=== PATIENT | female | born 1970 | race Caucasian/White ===

== ENCOUNTER 2017-09-19 11:38 | Inpatient (IN) | payer BC, OTHER ==
[~2017-09-19] VITALS: Ht 170.2 cm; Wt 91.8 kg
[2017-09-19] VITALS (14 sets, daily range): BP systolic 95–122; BP diastolic 40–67
--- NOTE | ~2017-09-19 | EKG ---
[address] [address] ELECTROCARDIOGRAM REPORT Name: MIGUEL PALMER Room #: 246-P ADM IN M.R.#: [id number] Admission: 09/19/17 Attend Phys: Khalif Torres DO Discharge: Date of : 74 Report #: [id number] THIS REPORT FOR: //name// [facility] ED Test Date: 2017-09-19 Test Time: 12:50:49 Pat Name: MIGUEL PALMER Department: Room: 246 Gender: F Cardiac Cath Tech: MARCO ANTONIO : 1970 Requested By: Kade Zavaleta Order Number: [id number] MD: Chance Doan Measurements Intervals [place] Rate: 125 P: 75 MI: 149 QRS: 46 QRSD: 98 T: 40 QT: 316 QTc: 456 Interpretive Statements Sinus tachycardia No previous ECG available for comparison Electronically Signed On 09-21-2017 12:17:22 RESIDENTIAL MONITOR by Chance Doan [email or web address] <ELECTRONICALLY SIGNED> By: Chance Doan MD 09/21/17 1217 1250 1250 Chance Doan MD /NKECHI
[2017-09-19 12:03] LABS: HEMATOCRIT 48.7 % (37.0-47.0); HEMOGLOBIN 15.5 gm/dL (12.0-15.0); MCH 29.8 pg (26.0-34.0); MCHC 31.8 g/dL (28.0-37.0); MCV 93.7 fL (80.0-100.0); RBC 5.2 mil/uL (4.20-5.00); RDW 13.6 % (10.5-14.5)
[2017-09-19 12:14] LABS: CALCIUM 9.7 mg/dL (8.5-10.1); CREATININE 1.2 mg/dL (0.6-1.0); POTASSIUM 5.1 mmol/L (3.5-5.1)
[2017-09-19] MEDS ORDERED: LEXAPRO 10 MG T10 M2 PO (12:16)
[2017-09-19] MEDS ORDERED: LEXAPRO20 MG PO (12:16)
[2017-09-19] MEDS ORDERED: HUMALOG100 UNIT/1 SUBQ (12:17)
[2017-09-19] MEDS ORDERED: ADDERALL 5 MG TA5 M1 PO (12:17)
[2017-09-19] MEDS ORDERED: MAXZIDE-25 MG1 EACH PO (12:17)
[2017-09-19 12:41] LABS: URINE BILIRUBIN NEGATIVE (Negative); URINE BLOOD TRACE (Negative); URINE COLOR YELLOW; URINE GLUCOSE-RANDOM* 2+ (Negative); URINE KETONES 3+ (Negative); URINE LEUKOCYTES-REFLEX NEGATIVE (Negative); URINE PROTEIN (DIPSTICK) TRACE (Negative); URINE SPECIFIC GRAVITY 1.025 (1.003-1.035); URINE UROBILINOGEN 0.2 E.U./dl (0.2-1.0)
[2017-09-19 12:46] LABS: CALCIUM 9.5 mg/dL (8.5-10.1); CREATININE 1.2 mg/dL (0.6-1.0); POTASSIUM 5.4 mmol/L (3.5-5.1)
[2017-09-19 15:00] LABS: CALCIUM 8.9 mg/dL (8.5-10.1); CREATININE 1.2 mg/dL (0.6-1.0)
[2017-09-20] VITALS (34 sets, daily range): BP systolic 93–124; BP diastolic 40–65
[2017-09-20 05:42] LABS: ABSOLUTE NEUTROPHILS 15.5 thou/uL (1.4-8.2); BASOPHILS 0.8 % (0.0-2.0); EOSINOPHILS 0.6 % (0.0-3.0); HEMATOCRIT 42.5 % (37.0-47.0); MCH 30.2 pg (26.0-34.0); MCHC 32.9 g/dL (28.0-37.0); MCV 91.7 fL (80.0-100.0); MONOCYTES 5.2 % (1.0-8.0); PLATELET COUNT 291 thou/uL (150-400); POLYS 83.4 % (36.0-66.0); RBC 4.64 mil/uL (4.20-5.00); RDW 13.5 % (10.5-14.5); WBC 18.6 thou/uL (4.0-11.0)
[2017-09-20 05:45] LABS: MANUAL DIFF NO
[2017-09-20 05:57] LABS: ALBUMIN 3.4 g/dL (3.4-5.0); CALCIUM 8.3 mg/dL (8.5-10.1); MAGNESIUM 2.1 mg/dL (1.8-2.4); POTASSIUM 4.7 mmol/L (3.5-5.1); TOTAL BILIRUBIN 0.4 mg/dL (<0.1-1.0); TOTAL PROTEIN 6.5 g/dL (6.4-8.2)
[2017-09-20 06:56] LABS: ABG SAMPLE TYPE ARTERIAL; BE(vivo) -14.9 mmol/L (-2 to +3); HCO3 10.1 mmol/L (22.0-26.0); LACTATE 1.27 mmol/L (0.5-2.0); O2(CT) 19.3 mL/dL (15.0-23.0); O2Hb 95.8 % (92.0-98.0); PCO2 22.9 mmHg (35.0-45.0); PO2 83.2 mmHg (80.0-100.0); STICK SITE R.RADIAL; pH 7.261 (7.360-7.450); tCO2 10.8 mmol/L (24.0-30.0)
[2017-09-20 12:59] LABS: ALBUMIN 3.2 g/dL (3.4-5.0); CALCIUM 8.3 mg/dL (8.5-10.1); MAGNESIUM 1.9 mg/dL (1.8-2.4); PHOSPHORUS 0.9 mg/dL (2.5-4.9)
[2017-09-20 13:03] LABS: POTASSIUM 3.1 mmol/L (3.5-5.1)
[2017-09-20 19:50] LABS: HEMATOCRIT 38.4 % (37.0-47.0); HEMOGLOBIN 12.8 gm/dL (12.0-15.0); MANUAL DIFF YES; MCH 30.1 pg (26.0-34.0); MCHC 33.4 g/dL (28.0-37.0); MCV 89.9 fL (80.0-100.0); PLATELET COUNT 204 thou/uL (150-400); RBC 4.27 mil/uL (4.20-5.00); RDW 13.3 % (10.5-14.5); WBC 7.8 thou/uL (4.0-11.0)
[2017-09-20 19:55] LABS: CALCIUM 7.8 mg/dL (8.5-10.1); CREATININE 0.9 mg/dL (0.6-1.0); POTASSIUM 3.4 mmol/L (3.5-5.1)
[2017-09-20 20:00] LABS: ALBUMIN 2.9 g/dL (3.4-5.0); CALCIUM 7.6 mg/dL (8.5-10.1); CREATININE 0.9 mg/dL (0.6-1.0); MAGNESIUM 1.9 mg/dL (1.8-2.4); PHOSPHORUS 1.3 mg/dL (2.5-4.9); POTASSIUM 3.4 mmol/L (3.5-5.1)
[2017-09-20 20:27] LABS: ATYPICAL LYMPHS 2 %; TOTAL CELL COUNT 100
[2017-09-21] VITALS (16 sets, daily range): BP systolic 105–168; BP diastolic 55–101
[2017-09-21 03:38] LABS: ALBUMIN 2.8 g/dL (3.4-5.0); CREATININE 0.6 mg/dL (0.6-1.0); MAGNESIUM 2.1 mg/dL (1.8-2.4); PHOSPHORUS 1.1 mg/dL (2.5-4.9)
[2017-09-21 03:40] LABS: POTASSIUM 2.9 mmol/L (3.5-5.1)
[2017-09-22 03:50] LABS: HEMATOCRIT 40.6 % (37.0-47.0); HEMOGLOBIN 13.6 gm/dL (12.0-15.0); MCH 29.7 pg (26.0-34.0); MCHC 33.5 g/dL (28.0-37.0); MCV 88.6 fL (80.0-100.0); RBC 4.58 mil/uL (4.20-5.00); RDW 13.1 % (10.5-14.5); WBC 5.1 thou/uL (4.0-11.0)
[2017-09-22 04:04] LABS: CALCIUM 8.3 mg/dL (8.5-10.1); CREATININE 0.7 mg/dL (0.6-1.0); POTASSIUM 3.3 mmol/L (3.5-5.1)
[2017-09-22 04:30] VITALS: BP 93/43
[2017-09-22 07:47] VITALS: BP 103/65
[2017-09-22 12:43] VITALS: BP 103/65
[2017-09-22 13:49] VITALS: BP 103/65
[2017-09-22 14:29] VITALS: BP 103/65
== END 2017-09-22 14:24 | disposition home or self-care (01) | DRG 638 ==
LOC: ER 11:38 → ICU 14:08 → EROBS 14:08 → ICU 16:08 → 4E 09-21 17:45
PROVIDERS: Emergency Medicine; Hospitalist; Internal Medicine Geriatric Medicine; Nurse Practitioner Acute Care
DX: E10.10 Type 1 diabetes mellitus with ketoacidosis without coma (principal); N17.9 Acute kidney failure, unspecified; Z79.899 Other long term (current) drug therapy; Z79.4 Long term (current) use of insulin; Z88.8 Allergy status to other drugs, medicaments and biological substances; F32.9 Major depressive disorder, single episode, unspecified; E86.0 Dehydration; R60.0 Localized edema
CPT/HCPCS: 10203; 10783; 27001

== ENCOUNTER → 2019-07-27 | Outpatient (CLI) | payer OTHER ==
[~2019-07-27] MED LIST: ADDERALL 5 MG TA5 M1 PO; HUMALOG100 UNIT/1 SUBQ; LEXAPRO 10 MG T10 M2 PO; LEXAPRO20 MG PO; MAXZIDE-25 MG1 EACH PO
== END ==
LOC: MRI 07:08
DX: M77.31 Calcaneal spur, right foot (principal); M72.2 Plantar fascial fibromatosis

== ENCOUNTER 2020-10-16 21:37 | Inpatient (IN) | payer OTHER ==
[~2020-10-16] VITALS: Ht 170.2 cm; Wt 90.7 kg
[2020-10-16 21:51] VITALS: BP 148/73
[2020-10-16] MEDS ORDERED: ROSUVASTATIN CA10 MG PO ×2 (21:59)
[2020-10-16 23:23] LABS: ABSOLUTE NEUTROPHILS 4.7 thou/uL (1.4-8.2); BASOPHILS 0.6 % (0.0-2.0); EOSINOPHILS 3.8 % (0.0-3.0); HEMATOCRIT 39.5 % (37.0-47.0); HEMOGLOBIN 13.6 gm/dL (12.0-15.0); MCH 30.9 pg (26.0-34.0); MCHC 34.3 g/dL (28.0-37.0); MONOCYTES 5.5 % (1.0-8.0); PLATELET COUNT 247 thou/uL (150-400); POLYS 72.1 % (36.0-66.0); RBC 4.39 mil/uL (4.20-5.00); RDW 12.7 % (10.5-14.5); WBC 6.6 thou/uL (4.0-11.0)
[2020-10-16 23:35] LABS: CREATININE 4.3 mg/dL (0.6-1.0); MAGNESIUM 2.3 mg/dL (1.8-2.4); POTASSIUM 4.5 mmol/L (3.5-5.1)
[2020-10-16] MEDS ORDERED: PREGABALIN100 MG PO ×2 (23:48)
[2020-10-17 00:06] LABS: URINE BILIRUBIN NEGATIVE (Negative); URINE BLOOD NEGATIVE (Negative); URINE CLARITY CLEAR; URINE COLOR YELLOW; URINE GLUCOSE-RANDOM* NEGATIVE (Negative); URINE KETONES NEGATIVE (Negative); URINE LEUKOCYTES-REFLEX NEGATIVE (Negative); URINE NITRITE-REFLEX NEGATIVE (Negative); URINE PROTEIN (DIPSTICK) NEGATIVE (Negative); URINE UROBILINOGEN 0.2 E.U./dl (0.2-1.0)
[2020-10-17 06:36] LABS: CALCIUM 8.7 mg/dL (8.5-10.1); CREATININE 3.7 mg/dL (0.6-1.0); POTASSIUM 3.8 mmol/L (3.5-5.1)
[2020-10-17 10:55] VITALS: BP 134/62
[2020-10-17 11:10] VITALS: BP 127/67
--- NOTE | 2020-10-17 14:58 | NUR ---
PATIENT ADMITTED FROM OR WITH BEATRIZ, PATIENT ALERT AND ORIENTED X 4. PATIENT FALL RISK, HAD RECENT FALL, FALL PRECAUTIONS IN PLACE, PATIENT INSTRUCTED TO CALL FOR ASSISTANCE. PATIENT C/O PAIN WITH HEAD, 04/29. PATIENT STATES TYLENOL NOT HELPING HEADACHE, THIS RN NOTIFIED DR JOLLY, OF NEEDING MEDS FOR HEADACHE, HE WILL PUT ORDER IN THE COMPUTER. PATIENT HAS RIGHT FOREARM IV IN PLACE, NS AT 100CC/HR STARTED. PATIENT UP WITH ASSIST X 1. WILL CONTINUE TO MONITOR.
--- NOTE | 2020-10-17 17:22 | NUR ---
RECEIVED CALL FROM THE LAB/[facility], PATIENT IS POSITIVE FOR COVID. THIS RN NOTIFIED DR JOLLY AND ANAY CAMP/DILEEP. PATIENT WILL TRANSFER TO ROOM 361, REPORT GIVEN TO LAURA. ALL PERSONAL BELONGINGS AND CHART SENT WITH THE PATIENT.
[2020-10-17 17:48] LABS: URINE CREATININE-RANDOM* 63.5 mg/dL
[2020-10-17 17:50] LABS: PROT/CREAT RATIO 0.2; URINE CREATININE-RANDOM* 62.7 mg/dL
--- NOTE | 2020-10-17 18:20 | NUR ---
PATIENT TRANSFER FROM AT 1730. A/O X4. PLEASANT. UP AD DORIS. NO DISDRESS NOTED. WILL KEEP MONITOR.
[2020-10-17 20:18] VITALS: BP 137/75
[2020-10-17 22:06] LABS: GLYCOHEMOGLOBIN (HGB A1C) 8.3 % (4.8-5.6)
[2020-10-18 04:25] VITALS: BP 118/58
[2020-10-18 05:13] VITALS: BP 143/76
[2020-10-18 05:40] LABS: HEMATOCRIT 38.1 % (37.0-47.0); HEMOGLOBIN 12.9 gm/dL (12.0-15.0); MCH 30.9 pg (26.0-34.0); MCV 90.9 fL (80.0-100.0); RBC 4.19 mil/uL (4.20-5.00); RDW 12.8 % (10.5-14.5)
[2020-10-18 05:49] LABS: CALCIUM 8.4 mg/dL (8.5-10.1); POTASSIUM 4.7 mmol/L (3.5-5.1)
[2020-10-18 05:50] LABS: CREATININE 2.2 mg/dL (0.6-1.0)
--- NOTE | 2020-10-18 06:15 | NUR ---
PT UP AD DORIS. PT STILL HAVING COMPLAINTS OF A HEADACHE WITHOUT ANY RELIEF FROM HYDRO, TYLENOL, OR FENTANYL. PT STATES MIGRAINE COCKTAIL USUALLY WORKS. WILL DISCUSS THIS WITH AM NURSE. ACCU CHECK DONE AT 0300, RESULT WAS 53. 2 ORANGE JUICES GIVEN AND WILL RETEST. COVID PCR CAME BACK NEGATIVE.
[2020-10-18 07:25] VITALS: BP 132/68
--- NOTE | 2020-10-18 11:13 | NUR ---
ORDERS RECEIVED FOR EVAL AND TREAT. Pt IS UP AD DORIS IN ROOM. SPOKE WITH Pt WHO STATES SHE IS HAVING NO DIFFICULTY WITH MOBILITY AND HAS BEEN UP WITHOUT ASSIST. Pt DECLINING FORMAL P.T. EVAL BUT APPEARS SAFE FOR HOME WHEN MEDICALLY CLEAR
--- NOTE | 2020-10-18 12:47 | NUR ---
INITIAL ASSESSMENT: SW reviewed chart and spoke with nursing and attending physician. Pt was admitted from home due to BEATRIZ. Pt with hx of DM type 1. Pt has insulin pump. Pt placed in Enhanced Isolation to r/o COVID-19. Pt had positive test and then had a negative test yesterday. Pt to transfer off of 3W. SW spoke with pt via phone. Introduced role of SW. Pt is alert/orientated x 4. Pt reports she lives at home with her family. Prior to admission, pt was independent with ADLs. No use of DME. Pt states there are 4 steps to enter the home. No hx of HH services or post-acute placement. Pt's PCP is Dr. Catracho Jennings. Plan is for pt to discharge home when medically stable. SW is following to assist as needed with discharge planning.
[2020-10-18 15:29] VITALS: BP 120/67
--- NOTE | 2020-10-18 18:41 | NUR ---
Transferred from [facility] this afternoon. Transferred to room safely. A+Ox4. On MS, not on telemetry; no complains and signs of chest pain, crushing sensation and heaviness. On room air. Vital signs stable. On carb controlled diet, tolerating well; no nausea, no vomiting and no abdominal pain noted. On blood sugar monitoring, taken and recorded accordingly; with insulin pump- physician aware, with notes that she can dose herself. Continent of bowel and bladder, able to go to the toilet independently. With R AC, NS at 100cc/hr, infusing well. Up ad dread. Complained of pain, due PRN pain meds given as prescribed. Pt complained that her home meds were not restarted- Dr Cunha informed and aware that he will review pt's meds. Previous ALKA Sommers said that Neuro- Dr Byrd said pt will be started on Migraine cocktail- orders not in, pt very upset. Paged Dr Byrd- will be putting orders in- pt updated that a/w doctors' orders. To continue monitoring patient.
[2020-10-18 20:17] VITALS: BP 109/56
--- NOTE | 2020-10-19 06:16 | NUR ---
ASSUMED CARE OF PT AT 1900HRS. PT AOX4 AND LETS NEEDS BE KNOWN. PT IS UP AD DORIS. FLUIDS CONTINUED, AND CRIAT IS IMPROVING. PT COMPLAINED OF MIGRANE AND NEW ORDERS RECEIVED. HOWEVER, PHARMACY DOES NOT HAVE MEDICATION IN STOCK AND THEY ANTICIPATE DELIVERY IN THE AM. ASSESSMENT CHARTED. PT WAS ABLE TO GET SLEEP PART OF THE SHIFT.
[2020-10-19 06:39] LABS: ALBUMIN 2.8 g/dL (3.4-5.0); CREATININE 1.3 mg/dL (0.6-1.0); PHOSPHORUS 2.7 mg/dL (2.5-4.9); POTASSIUM 4.5 mmol/L (3.5-5.1)
[2020-10-19 07:46] VITALS: BP 119/52
[2020-10-19 18:35] VITALS: BP 119/52
[2020-10-19 18:38] VITALS: BP 119/52
--- NOTE | 2020-10-19 20:44 | NUR ---
PT DISCHARGED HOME, VSS, A&OX4, DENIES PAIN. PATIENTS LYRICA INCREASED TO 150MG, CALLED DOCTOR. PATIENT STATES SHE WANTS TO LEAVE AND WILL CALL BACK TOMORROW IF PRESCRIPTION NOT AT PHARMACY. NO SIGNS OF DISTRESS AT DISCHARGE. IV REMOVED. ALL BELONGINGS WITH PATIENT.
== END 2020-10-19 20:44 | disposition home or self-care (01) | DRG 177 ==
LOC: ER 21:37 → 4W 10-17 00:32 → EROBS 10-17 00:32 → 3W 10-17 00:32 → 4S 10-17 11:09 → 3W 10-17 17:22 → 4W 10-18 17:11
PROVIDERS: Emergency Medicine; Internal Medicine Nephrology; Nurse Practitioner Family; Psychiatry & Neurology Neurology; ADMIT Hospitalist; ATTEND Hospitalist
DX: U07.1 COVID-19 (principal); N17.0 Acute kidney failure with tubular necrosis; E78.5 Hyperlipidemia, unspecified; F32.9 Major depressive disorder, single episode, unspecified; E86.0 Dehydration; N18.9 Chronic kidney disease, unspecified; T39.395A Adverse effect of other nonsteroidal anti-inflammatory drugs [NSAID], initial encounter; T50.2X5A Adverse effect of carbonic-anhydrase inhibitors, benzothiadiazides and other diuretics, initial encounter; E11.22 Type 2 diabetes mellitus with diabetic chronic kidney disease; Z79.4 Long term (current) use of insulin; Z79.899 Other long term (current) drug therapy; Z88.8 Allergy status to other drugs, medicaments and biological substances; Y92.89 Other specified places as the place of occurrence of the external cause; N14.1 Nephropathy induced by other drugs, medicaments and biological substances; G43.909 Migraine, unspecified, not intractable, without status migrainosus; G44.229 Chronic tension-type headache, not intractable
CPT/HCPCS: 10040; 10080; 10879

== ENCOUNTER 2020-10-25 21:21 | Emergency (ER) | payer OTHER ==
[~2020-10-25] VITALS: Ht 170.2 cm; Wt 92.5 kg
[~2020-10-25 21:21] MED LIST changes: +PREGABALIN100 MG PO; +ROSUVASTATIN CA10 MG PO
[2020-10-25 22:52] LABS: URINE BILIRUBIN NEGATIVE (Negative); URINE BLOOD NEGATIVE (Negative); URINE CLARITY SL CLOUDY; URINE COLOR YELLOW; URINE GLUCOSE-RANDOM* NEGATIVE (Negative); URINE KETONES NEGATIVE (Negative); URINE LEUKOCYTES-REFLEX NEGATIVE (Negative); URINE NITRITE-REFLEX NEGATIVE (Negative); URINE PROTEIN (DIPSTICK) NEGATIVE (Negative); URINE SPECIFIC GRAVITY >= 1.030 (1.005-1.035); URINE UROBILINOGEN 0.2 E.U./dl (0.2-1.0)
[2020-10-25 23:29] LABS: ABSOLUTE NEUTROPHILS 4.9 thou/uL (1.4-8.2); EOSINOPHILS 3.6 % (0.0-3.0); HEMATOCRIT 35.5 % (37.0-47.0); HEMOGLOBIN 11.7 gm/dL (12.0-15.0); LYMPHOCYTES 28.3 % (24.0-44.0); MCH 30.8 pg (26.0-34.0); MCHC 33.1 g/dL (28.0-37.0); MONOCYTES 5.7 % (1.0-8.0); PLATELET COUNT 182 thou/uL (150-400); POLYS 61.4 % (36.0-66.0); RBC 3.82 mil/uL (4.20-5.00)
[2020-10-25 23:32] LABS: CALCIUM 8.1 mg/dL (8.5-10.1); CREATININE 0.7 mg/dL (0.6-1.0); POTASSIUM 3.8 mmol/L (3.5-5.1)
[2020-10-26 02:44] VITALS: BP 141/88
== END 2020-10-26 02:44 | disposition home or self-care (01) ==
LOC: ER 21:21
PROVIDERS: Emergency Medicine; Nurse Practitioner
DX: E86.0 Dehydration (principal); R53.81 Other malaise; E10.9 Type 1 diabetes mellitus without complications; F32.9 Major depressive disorder, single episode, unspecified; Z79.899 Other long term (current) drug therapy; Z79.4 Long term (current) use of insulin